=== PATIENT | male | born 1995 | race Caucasian/White ===

== ENCOUNTER 2024-04-30 15:52 | Inpatient (IN) | payer MEDICAID, SELFPAY ==
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
[2024-04-30 15:58] VITALS: BP 149/82; PULSE 88; RESP 16; TEMP 36.9; O2SAT 98; BMI 24.4
[2024-04-30 16:11] VITALS: RESP 16
[2024-04-30 17:13] LABS: MANUAL DIFF FLAG NO
[2024-04-30 17:21] LABS: Basophils Absolute Auto 0.1 X10*3/uL (0.0-0.2); Basophils Percent Auto 0.8 % (0-2); Eosinophils Absolute Auto 0.1 X10*3/uL (0.0-0.4); Eosinophils Percent Auto 1.2 % (0-4); Hematocrit 43.5 % (42.0-52.0); Hemoglobin 15.1 g/dl (14.0-18.0); Imm Gran Abs Auto 0.02 X10*3/uL (0.00-0.03); Imm Gran Pct Auto 0.2 % (0.0-0.4); Lymphocytes Absolute Auto 3.5 X10*3/uL (1.2-4.9); Lymphocytes Percent Auto 38.9 % (20-40); Mean Corpuscular HGB Conc 34.7 g/dl (31.0-36.0); Mean Corpuscular Hemoglobin 30.4 pg (27.0-33.0); Mean Corpuscular Volume 87.5 fL (80.0-98.0); Mean Platelet Volume 9.6 fL (9.4-12.4); Monocytes Absolute Auto 0.6 X10*3/uL (0.1-1.2); Neutrophils Absolute Auto 4.6 x10*3/uL (2.0-8.3); Neutrophils Percent Auto 51.9 % (45-73); Platelet Count 348 X10*3/uL (160-400); Red Blood Count 4.97 X10*6/uL (4.60-5.80); Red Cell Distribution Width 12.5 % (11.0-16.0); White Blood Count 8.9 X10*3/uL (4.8-10.8)
[2024-04-30 17:31] LABS: Alanine Aminotransferase 53 U/L (0-40); Albumin Level 4.6 g/dL (3.5-5.0); Alkaline Phosphatase 78 U/L (39-117); Anion Gap 10 (12-20); Aspartate Amino Transferase 30 U/L (5-37); Bilirubin Total 0.4 mg/dL (0.0-1.0); Blood Urea Nitrogen 9 mg/dL (9-16); Calcium 9.4 mg/dL (8.4-10.2); Carbon Dioxide 26 mmol/L (22-29); Chloride 109 mmol/L (96-108); Estimated Glomerular Filt Rate > 60; Ethanol < 10 mg/dL; Glucose Random 117 mg/dL (60-115); Potassium 3.7 mmol/L (3.3-5.1); Sodium 141 mmol/L (135-145); Total Protein 7.9 g/dL (6.5-8.0)
[2024-04-30 17:56] LABS: Amphetamine Screen Urine Not Detected (Not Detect); Barbiturates, Urine Not Detected (Not Detect); Benzodiazepines Screen Urine Not Detected (Not Detect); Buprenorphine Scr Not Detected (Not Detect); Cannabinoid Screen Urine POSITIVE (Not Detect); Cocaine Screen Urine Not Detected (Not Detect); Fentanyl, urine Not Detected (Not Detect); Methadone Screen, Urine Not Detected (Not Detect); Opiate Screen Urine Not Detected (Not Detect); Oxycodone Screen Urine Not Detected (Not Detect); Phencyclidine Screen Urine Not Detected (Not Detect)
[2024-04-30 18:03] LABS: Appearance Urine Clear; Color Urine Yellow; Glucose Urine UA Negative (Negative); Leukocyte Esterase Urine Negative (Negative); Nitrite Urine Negative (Negative); PH 6.5 (5.0-9.0); Urine Blood Negative (Negative); Urine Ketones Negative (Negative); Urine Protein Negative (Neg-Trace)
--- NOTE | 2024-04-30 18:25 | PC.NURSE ---
Pt is calm and cooperative, sitting at desk writing and eating dinner, offering no complaints to this RN. Continue plan of care for CARE team jude
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
[2024-05-01 06:29] VITALS: BP 115/76; PULSE 84; RESP 17; TEMP 36.7; O2SAT 97
--- NOTE | 2024-05-01 08:31 | PHA.MEDREC ---
Pharmacy Consult ? Medication Reconciliation Pharmacy has completed the medication reconciliation. Reviewed med rec done by nursing (Nicole).
[2024-05-01 08:38] VITALS: BP 122/73; PULSE 86; RESP 14; TEMP 37.2; O2SAT 97
--- NOTE | 2024-05-01 09:04 | PC.NURSE ---
Assumed care of patient at 0645, patient appears to be in no apparent distress this am, calm and cooperative, offering no complaints to this RN. Continue plan of care for inpt bedsearch this am
[2024-05-01 16:34] VITALS: BP 129/75; PULSE 75; RESP 18; TEMP 36.9; O2SAT 97
[2024-05-02 05:49] VITALS: BP 140/89; PULSE 90; RESP 17; TEMP 36.9; O2SAT 99
--- NOTE | 2024-05-02 06:42 | PC.NURSE ---
Patient slept through the night, no distress observed/reported, disposition per [facility] is section 12 inpatient bed search, 15 minutes safety check, no behavior and safety concerns, will continue to monitor
--- NOTE | 2024-05-02 07:14 | PC.NURSE ---
Assumed care of patient at 0645, patient appears to be in no apparent distress this am, calm and cooperative, offering no complaints to this RN. Continue plan of care for inpatient bedsearch
[2024-05-02 18:27] VITALS: BMI 26.2
[2024-05-02 18:29] VITALS: BP 142/92; PULSE 85; RESP 18; TEMP 36.3; O2SAT 100
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
[2024-05-02] MEDS: Flu Vacc TS2024-25(6mos up)/PF 0.5 ML SYRINGE IM (20:18)
[2024-05-03 08:00] VITALS: BP 119/64; PULSE 82; RESP 16; TEMP 36.7; O2SAT 97
[2024-05-03 08:17] LABS: Estimated Average Glucose 105 mg/dL; Hemoglobin A1C 134.3312 umol/L; Hemoglobin A1c % 5.3 % (<6.0)
[2024-05-03 08:22] LABS: Cholesterol 159 mg/dL (<200); HDL Cholesterol 51 mg/dL (>40); LDL Cholesterol Calculated 76 mg/dL (<100); Triglycerides 164 mg/dL (<150)
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
[2024-05-03 20:00] VITALS: BP 126/61; PULSE 80; TEMP 36.1; O2SAT 99
[2024-05-04 09:31] VITALS: BP 117/71; PULSE 86; RESP 16; TEMP 36.6; O2SAT 98
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
[2024-05-04 20:00] VITALS: BP 134/87; PULSE 91; TEMP 36.6; O2SAT 98
[2024-05-04] MEDS: HaloperidoL 1 MG TABLET 2 MG PO (20:49)
[2024-05-05] MEDS: HaloperidoL 1 MG TABLET 2 MG PO ×2 (08:49→22:38)
[2024-05-05 08:50] VITALS: BP 108/68; PULSE 85; RESP 16; TEMP 36.8; O2SAT 99
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
[2024-05-06 07:00] VITALS: BMI 26.9
[2024-05-06 08:00] VITALS: BP 118/70; PULSE 82; RESP 18; TEMP 35.8; O2SAT 97
[2024-05-06] MEDS: HaloperidoL 1 MG TABLET 2 MG PO (08:26)
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
[2024-05-06 20:00] VITALS: BP 130/78; PULSE 82; RESP 16; TEMP 36.2; O2SAT 99
[2024-05-06] MEDS: hydrOXYzine HCL 25 MG TABLET PO (21:39)
[2024-05-06] MEDS: HaloperidoL 1 MG TABLET 3 MG PO (21:39)
[2024-05-07 08:00] VITALS: BP 115/62; PULSE 80; RESP 18; TEMP 36.4; O2SAT 97
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
[2024-05-07] MEDS: HaloperidoL 1 MG TABLET 3 MG PO ×3 (09:52→20:41)
[2024-05-07 20:00] VITALS: BP 116/69; PULSE 90; RESP 15; TEMP 36.1; O2SAT 98
[2024-05-08 08:39] VITALS: BP 131/72; PULSE 78; RESP 16; TEMP 36.8; O2SAT 97
[2024-05-08] MEDS: HaloperidoL 5 MG TABLET PO ×2 (08:49→20:12)
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
[2024-05-08 20:00] VITALS: BP 135/78; PULSE 79; RESP 15; TEMP 37.4; O2SAT 98
[2024-05-09 08:24] VITALS: BP 137/77; PULSE 98; RESP 16; TEMP 36.7; O2SAT 97
[2024-05-09] MEDS: HaloperidoL 5 MG TABLET PO ×2 (08:31→20:02)
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
[2024-05-09 19:55] VITALS: BP 140/83; PULSE 86; RESP 15; TEMP 36.2; O2SAT 96
[2024-05-10 08:17] VITALS: BP 142/74; PULSE 87; RESP 16; TEMP 36.7; O2SAT 98
[2024-05-10] MEDS: HaloperidoL 5 MG TABLET PO ×2 (09:19→20:20)
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
[2024-05-10 20:00] VITALS: BP 131/84; PULSE 86; TEMP 36.2; O2SAT 98
[2024-05-11 08:04] VITALS: BP 116/62; PULSE 92; TEMP 36.4; O2SAT 98
[2024-05-11] MEDS: HaloperidoL 5 MG TABLET PO ×2 (08:19→20:29)
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
[2024-05-11 20:00] VITALS: BP 130/80; PULSE 103; RESP 20; TEMP 35.9; O2SAT 97
[2024-05-12] MEDS: HaloperidoL 5 MG TABLET PO (08:14)
[2024-05-12 08:39] VITALS: BP 131/75; PULSE 98; TEMP 36.4; O2SAT 95
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
== END 2024-05-12 10:55 | disposition other institution (70) | DRG 750 ==
LOC: HO.ED 17:07 → HO.PM5 05-02 17:56
PROVIDERS: Nurse Practitioner Family; Admitting Provider Psychiatry & Neurology Psychiatry; Emergency Provider Emergency Medicine; PCP Internal Medicine; Visit Provider Psychiatry & Neurology Psychiatry
DX: F25.0 Schizoaffective disorder, bipolar type (principal); F43.10 Post-traumatic stress disorder, unspecified; Z23 Encounter for immunization; Z62.810 Personal history of physical and sexual abuse in childhood; Z59.02 Unsheltered homelessness; Z79.899 Other long term (current) drug therapy
CPT/HCPCS: 36415; 80053; 80061; 80307; 81003; 83036; 85025; 90656; 99285

== ENCOUNTER → 2024-05-02 16:02 | Outpatient (BNV) | payer MEDICAID, SELFPAY | PROVIDERS: Admitting Provider Psychiatry & Neurology Psychiatry; Emergency Provider Emergency Medicine; PCP Internal Medicine; Visit Provider Psychiatry & Neurology Psychiatry | DX: F25.1 Schizoaffective disorder, depressive type (principal); F43.11 Post-traumatic stress disorder, acute; Z59.00 Homelessness unspecified | CPT/HCPCS: 90792; 99231; 99232; 99239 ==